=== PATIENT | male | born 1950 | race Two or more races ===

== ENCOUNTER 2020-05-28 08:52 | Outpatient (CLI) | payer OTHER | END 2020-05-28 09:22 | disposition home or self-care (01) | LOC: SONOGRAMA 08:52 | PROVIDERS: ATTEND Pathology Anatomic Pathology & Clinical Pathology | DX: D34 Benign neoplasm of thyroid gland (principal); E04.1 Nontoxic single thyroid nodule; E04.8 Other specified nontoxic goiter ==

== ENCOUNTER 2020-07-13 07:00 | Day surgery (SDC) | payer OTHER ==
[~2020-07-13 07:00] MED LIST: ALTACE5 MG PO
[2020-07-13] MEDS ORDERED: ATORVASTATIN CA40 MG (10:08)
== END 2020-07-13 13:00 | disposition home or self-care (01) ==
LOC: CIR.AMB 07:00 → O/R 08:00 → SURH 08:00 → EDSTATUS 09:30 → CIR.AMB 13:00 → SURH 15:30 → O/R 17:15
PROVIDERS: ATTEND Surgery
DX: D35.1 Benign neoplasm of parathyroid gland (principal); Z20.822 Contact with and (suspected) exposure to COVID-19

== ENCOUNTER 2023-03-16 07:50 | Outpatient (CLI) | payer OTHER ==
[~2023-03-16 07:50] MED LIST changes: +ATORVASTATIN CA40 MG
== END 2023-03-16 07:54 | disposition home or self-care (01) ==
LOC: RAD 07:50
PROVIDERS: ATTEND Orthopaedic Surgery
DX: M75.42 Impingement syndrome of left shoulder (principal)